=== PATIENT | female | born 1975 | race Caucasian/White ===

== ENCOUNTER 2017-01-29 08:00 | Outpatient (RCR) | payer OTHER ==
[2017-01-30] MEDS ORDERED: MAGN64TASA PO (13:20)
[2017-01-30] MEDS ORDERED: VITA10002 PO (13:20)
[2017-01-30] MEDS ORDERED: CLON0.5T PO (13:20)
[2017-01-30] MEDS ORDERED: NEXI40CA PO (13:20)
[2017-01-30] MEDS ORDERED: FISH1000 PO (13:20)
[2017-01-30] MEDS ORDERED: VITA-112 PO (13:20)
[2017-01-30] MEDS ORDERED: PROA1AER INH (13:27)
== END 2017-02-17 ==
LOC: M ST 08:00
PROVIDERS: ATTEND Nurse Practitioner Family
DX: Z51.89 Encounter for other specified aftercare (principal); R13.10 Dysphagia, unspecified

== ENCOUNTER → 2017-02-06 | Outpatient (CLI) | payer OTHER ==
[~2017-02-06] VITALS: Ht 172.7 cm; Wt 88.8 kg
[~2017-02-06] MED LIST: CLON0.5T PO; FISH1000 PO; LIDOCAINE 2% INJ 100 MG/5 ML SDV (FOR ANES.) As Ordered ONE; MAGN64TASA PO; NEXI40CA PO; NS 1,000 ML IV SCH; PROA1AER INH; PROPOFOL 200 MG/20 ML VIAL As Ordered ONE; VITA-112 PO; VITA10002 PO; fentaNYL 100 MCG/2 ML INJECTION (J3010) As Ordered ONE
--- NOTE | 2017-02-06 13:01 | ROOR ---
Patient Name: Cedrick Erwin Procedure Date: 02/06/2017 12:34 PM Date of : 1975 Age: 41 Room: [facility] Gender: Female Note Status: Finalized Procedure: Upper GI endoscopy + Biopsies Indications: Heartburn, Failure to respond to medical treatment Providers: Jigar Hui MD Referring MD: EMELY HAN MD Requesting Provider: Medicines: Monitored Anesthesia Care Complications: No immediate complications. Procedure: Pre-Anesthesia Assessment: - The heart rate, respiratory rate, oxygen saturations, blood pressure, adequacy of pulmonary ventilation, and response to care were monitored throughout the procedure. The Endoscope was introduced through the mouth, and advanced to the second part of duodenum. The upper GI endoscopy was accomplished without difficulty. The patient tolerated the procedure well. Findings: The Z-line was irregular and was found 30 cm from the incisors. Multiple biopsies were obtained with cold forceps for evaluation to rule out Todd's Esophagus randomly at the gastroesophageal junction. A medium-sized hiatal hernia was present. No other significant abnormalities were identified in a careful examination of the stomach. The exam of the duodenum was otherwise normal. Impression: - Z-line irregular, 30 cm from the incisors. - Medium-sized hiatal hernia. - Multiple biopsies were obtained at the gastroesophageal junction. - The examination was otherwise normal. Recommendation: - Patient has a contact number available for emergencies. The signs and symptoms of potential delayed complications were discussed with the patient. Return to normal activities tomorrow. Written discharge instructions were provided to the patient. - High fiber diet. - Discharge patient to home. - Follow an antireflux regimen. - Continue present medications. - Await pathology results. - Check Portal Online for Path Results.([email or web address] - Telephone GI clinic for pathology results in 1 week. - The findings and recommendations were discussed with the patient's family. Jigar Hui MD Jigar Hui MD 02/06/2017 1:01:13 PM This report has been signed electronically. Number of Addenda: 0 Note Initiated On: 02/06/2017 12:34 PM Estimated Blood Loss: Estimated blood loss: none.
[2017-02-06 13:30] VITALS: BP 124/78
== END | disposition home or self-care (01) ==
LOC: M OPP 11:14
PROVIDERS: ATTEND Internal Medicine Gastroenterology
DX: R12 Heartburn (principal); K22.8 Other specified diseases of esophagus; K44.9 Diaphragmatic hernia without obstruction or gangrene; R10.13 Epigastric pain; F32.9 Major depressive disorder, single episode, unspecified; F41.9 Anxiety disorder, unspecified; R51 Headache; J44.9 Chronic obstructive pulmonary disease, unspecified; L40.9 Psoriasis, unspecified; K21.9 Gastro-esophageal reflux disease without esophagitis; F17.210 Nicotine dependence, cigarettes, uncomplicated; Z88.0 Allergy status to penicillin; Z91.013 Allergy to seafood; Z79.899 Other long term (current) drug therapy
CPT/HCPCS: 43239; 88305; 99156; 99157; J3010

== ENCOUNTER → 2017-02-08 | Outpatient (CLI) | payer OTHER ==
[~2017-02-08] MED LIST changes: +ISOVUE-370 76% 100ML VIAL (Q9967) As Ordered ONE; -LIDOCAINE 2% INJ 100 MG/5 ML SDV (FOR ANES.) As Ordered ONE; -NS 1,000 ML IV SCH; -PROPOFOL 200 MG/20 ML VIAL As Ordered ONE; -fentaNYL 100 MCG/2 ML INJECTION (J3010) As Ordered ONE
--- NOTE | 2017-02-11 10:00 | REP ---
CT CHEST WITH IV CONTRAST: TECHNIQUE: Axial contrast enhanced images from the thoracic inlet to the upper abdomen using 100 mL Isovue 370 intravenous contrast material with multiplanar reformations. There is biapical pleural and parenchymal scarring. Other small areas of linear fibrotic scarring are seen throughout both lungs. In the right lower lobe at the lateral costophrenic angle is a 3 mm nodular opacity which is of doubtful significance. I recommend [address] only if patient is at high risk for cancer. No adenopathy is seen in the mediastinal or hilar regions. There is no axillary adenopathy. The visualized thyroid gland is unremarkable. There is no aneurysm of the thoracic aorta and no evidence of dissection. Heart is normal in size. There is no pleural or pericardial effusion. The visualized portions of the upper abdomen demonstrate metallic clips in the gallbladder fossa status post cholecystectomy. There is an enhancing nodular area in the right lobe of the liver measuring 1.7 cm in diameter. This is not seen on the prior study of 04/09/2013. No other abdominal abnormality is seen. IMPRESSION: 3 mm nodular opacity right lower lobe at the costophrenic angle laterally is of doubtful significance. Recommend followup CT of the chest in 1 year only if the patient is at high risk for cancer. No other suspicious abnormalities in the chest. In the right lobe of the liver is an enhancing nodule measuring 1.7 cm in diameter. This is not seen on the prior study of 04/09/2013. In a patient of this age, this could represent an adenoma. Recommend dedicated MRI of the liver with and without contrast to further evaluate. Signed by Casey Cowart MD 02/11/2017 08:06 P
== END ==
LOC: M RAD 17:13
PROVIDERS: ATTEND Nurse Practitioner Family
DX: R91.8 Other nonspecific abnormal finding of lung field (principal)

== ENCOUNTER 2017-02-26 08:08 | Outpatient (RCR) | payer OTHER ==
[~2017-02-26 08:08] MED LIST changes: -ISOVUE-370 76% 100ML VIAL (Q9967) As Ordered ONE
== END 2017-03-20 ==
LOC: M ST 08:08
PROVIDERS: ATTEND Nurse Practitioner Family
DX: R13.10 Dysphagia, unspecified (principal)

== ENCOUNTER → 2017-02-28 | Outpatient (CLI) | payer OTHER ==
--- NOTE | 2017-02-28 16:13 | REP ---
MRI LIVER WITH AND WITHOUT CONTRAST: MRI liver performed with multiple sequences obtained in the axial and coronal plane, prior to and following the intravenous administration of 17 mL of gadolinium. Correlation made with CT of the chest 02/08/2017. Once again there is an enhancing nodular area inferiorly in the right lobe of the liver laterally in a subcapsular location. Maximum diameter measured today was 1.5 cm. This is essentially unchanged. The nodule enhances in the arterial phase and demonstrates incomplete washout on latera phase imaging. It is not well visualized on precontrast images with Vague low signal on T1 and high signal on T2 at this location. No other liver nodule is seen. The spleen, adrenals, pancreas, and kidneys appear unremarkable. There is no adenopathy or free fluid is seen. IMPRESSION: Enhancing 1.5 cm nodule in the right lobe of the liver in a subcapsular location. This demonstrates incomplete washout. The appearance is nonspecific. In a patient of this age, this most likely represents adenoma, particularly if the patient is taking oral contraceptives. This nodule was not seen on the prior CT in 2012. If the patient has known neoplasm and is at high risk for liver metastases, then a biopsy would be recommended, otherwise followup CT or MRI can be performed in 6 months. Signed by Casey Cowart MD 02/28/2017 04:24 P
== END ==
LOC: M RAD 13:20
PROVIDERS: ATTEND Nurse Practitioner Family
DX: K76.9 Liver disease, unspecified (principal)
CPT/HCPCS: 74183; A9576

== ENCOUNTER → 2024-04-07 | Outpatient (CLI) | payer OTHER ==
[~2024-04-07] MED LIST changes: -CLON0.5T PO; +CLON0.5T2 PO; +CYAN100049 PO; -PROA1AER INH; +PROAAER10 INH; +PROHANCE 279.3MG/ML 15ML VIAL As Ordered ONE; +PROHANCE 279.3MG/ML 5ML VIAL As Ordered ONE; -VITA10002 PO
== END ==
LOC: M RAD 15:28
PROVIDERS: ATTEND Physician Assistant
DX: H93.12 Tinnitus, left ear (principal)
CPT/HCPCS: 70553; A9576